=== PATIENT | female | born 1975 | race Asian ===

== ENCOUNTER 2017-09-06 05:17 | Emergency (ER) | payer OTHER ==
[~2017-09-06] VITALS: Ht 152.4 cm; Wt 63.6 kg
[2017-09-06 05:22] VITALS: BP 123/75; PULSE 90; TEMP 97.8
[2017-09-06] MEDS ORDERED: CEPHALEXIN500 M1 PO (05:53)
[2017-09-06] MEDS ORDERED: COLACE 100100 MG/CAP PO (05:54)
[2017-09-06] MEDS ORDERED: TYLENOL/CODEINE1 ML (05:54)
[2017-09-06] MEDS ORDERED: FERRO-TIME325 MG PO (05:54)
[2017-09-06] MEDS ORDERED: MASON NATURAL1000 MG PO (05:55)
[2017-09-06] MEDS ORDERED: NORCO 325 MG-51 TAB PO (06:00)
== END 2017-09-06 09:08 | disposition home or self-care (01) ==
LOC: COL.ER 05:17
DX: J36 Peritonsillar abscess (principal)
CPT/HCPCS: J1100; J7120